=== PATIENT | male | born 1985 | race Two or more races ===

== ENCOUNTER → 2021-12-25 | Outpatient (CLI) | payer OTHER ==
[~2021-12-25] VITALS: Ht 170.2 cm; Wt 99.8 kg
[~2021-12-25] MED LIST: ADENOSINE 84 MG in GIVE UN-DILUTED 0 ML IV ONE; ADENOSINE 90 MG/30 ML INJ IV ONE
== END | disposition home or self-care (01) ==
LOC: Rad HDHVI 08:11
PROVIDERS: ATTEND Internal Medicine Cardiovascular Disease
DX: R07.9 Chest pain, unspecified (principal); R06.02 Shortness of breath; I20.0 Unstable angina
CPT/HCPCS: 78452; 93005; 96374; 96375; A9500; J0153